=== PATIENT | female | born 1995 | race African-American/Black ===

== ENCOUNTER 2019-05-11 10:58 | Outpatient (CLI) | payer OTHER | END 2019-05-11 20:31 | disposition home or self-care (01) | LOC: RAD 10:58 | DX: M79.604 Pain in right leg (principal); G54.6 Phantom limb syndrome with pain; R51 Headache; M54.9 Dorsalgia, unspecified; R06.02 Shortness of breath; F32.9 Major depressive disorder, single episode, unspecified ==